=== PATIENT | male | born 1985 | race Caucasian/White ===

== ENCOUNTER 2022-02-17 07:41 | Emergency (ER) | payer BC ==
[2022-02-17] MEDS ORDERED: Ketorolac 30 MG/ML SDV IM ONE (08:36)
[2022-02-17 08:50] LABS: ESTIMATED GFR 100 mL/min (>60)
== END 2022-02-17 10:02 | disposition home or self-care (01) ==
LOC: JP.ED 07:41
DX: U07.1 COVID-19 (principal); F17.210 Nicotine dependence, cigarettes, uncomplicated; Z88.2 Allergy status to sulfonamides
CPT/HCPCS: 36415; 80053; 81001; 85025; 85379; 86140; 87635; 96372; 99283; J1885; 99281; U0002